=== PATIENT | male | born 1980 | race Two or more races ===

== ENCOUNTER 2023-12-25 13:26 | Outpatient (AMB) | payer MEDICAID, SELFPAY ==
[2023-12-25 13:36] VITALS: BP 122/82; PULSE 85; RESP 18; TEMP 36.4; O2SAT 96; BMI 42.7
--- NOTE | 2023-12-25 13:36 | PD.ORTHCLVIS ---
Vital signs 12/25/23 13:36 Height 1.75 m Height Method Stated Weight 130.748 kg Weight Measurement Method Standing Scale BMI 42.7 BP 122/82 Blood Pressure Source Automatic Cuff Blood Pressure Location Right Upper Arm Position Sitting Respiration 18 Pulse 85 Pulse Source Monitor Temp 97.5 F Temp Source Temporal Artery Scan Pulse Oximetry (%) 96 Oxygen Delivery Method Room Air Med/Allergies Allergies & Medications Allergies No Known Drug Allergies Allergy (Verified 12/25/23 13:37) Medication Reconciliation meloxicam 7.5 mg tablet 7.5 mg PO QDAY 10/23/23 [History Confirmed 12/25/23] meloxicam 7.5 mg tablet 7.5 mg PO QDAY #45 tabs 12/25/23 [Rx] Subjective Visit Visit for: follow up visit Immunization / Flu Flu Vaccine in the Last 12 Months: No Flu Vaccine Exclusion Criteria: No Exclusion Criteria History of Present Illness Chief complaint: F/U KNEE INJECTION Date of injury / onset of symptoms: 4 YEARS patient is a pleasant 43-year-old male who presents today for dilation of his left knee. He has been having left knee pain for over 4 years. He has not had any injections. He tried ibuprofen and meloxicam. The pain is affecting his quality life. He reports he has difficulty with stability and turning Personal History Occupation: GUEST RELATIONS EXECUTIVE Hobbies: WALKING/YARD WORK Red flag PMH: none Pain Pain level (0-10): 4 Pain duration: WITH MOVEMENT Pain location: anterior Pain quality: dull Pain timing: increases with activity Associated signs & symptoms: none Ambulatory data Ambulatory device: none Treatments Improvement with previous injections: No Improvement with PT: No Improvement with NSAIDS: n/a Review of Systems Review of Systems: All systems negative unless otherwise noted in HPI. Exam Exam Patient is in no acute distress and is cooperative with the examination today. Patient has a normal mood and affect. Breathing is nonlabored. In no respiratory distress. Bilateral extremities were evaluated and demonstrates sensation intact to light touch. Palpable pedal pulses are present. No significant edema is present. Left knee demonstrates range of motion from 0 to 110 degrees. Positive Orozco's and medial joint line tenderness. Knee feels stable to varus valgus stress with AP translation. Tender palpation medially An MRI was reviewed by me today as well as an x-ray from [facility]. MRI demonstrates a body tear of the medial meniscus. There is extrusion and severe cartilage loss medially Assessment and Plan Problem List (1) Tear of meniscus of left knee: Qualifiers: Tear current or old: current Status: Acute Plan Patient is a 43-year-old male with a tear of the left knee meniscus And arthritis of the medial compartment. We discussed nonoperative treatment. He did well with the last cortisone injection. We have given him a prescription for the meloxicam. We discussed that we can give him another cortisone injection in a month if he wants. He does not really have any mechanical symptoms right now and he did receive good relief with the last injection. Cortisone injections today. I think is reasonable to start with this. Recommend knee cortisone injection as patient would like to proceed with conservative treatment at this time. The risks and benefits of the procedure were reviewed with the patient and patient gave verbal consent to continue with the procedure. Procedure: performed by Dr. Cisneros Using sterile technique the left knee was thoroughly prepped with alcohol, and approximately 1 cc of Kenalog 40 mg/mL and 4 cc of 1% lidocaine was injected without resistance into the medial tibial femoral joint space. The patient tolerated the procedure. Office Procedures GNS Level of Care Nursing/Assessment Patient Status: Established Patient Nursing Assessment/Reassesment: Medication Reconciliation, Update PMH in EMR and Vital Signs Coordination of Care: Complex Care and Chronic Disease 1-5, Education Complex Pt/Fam, Consent,records obtained, informed consent, Results/Orders obtained and Staff clarify orders Established Patient Charge Established Patient Point Assignment: 95 Established Patient Point Charge: EP Level 3 (80-115) Past Medical History Past Medical History Have you ever been diagnosed with any of the following: Respiratory Problems Smoking: No Smoking Cessation Counseling: No Smoking Exposure: No Tobacco Use: No
== END 2023-12-25 14:02 | disposition home or self-care (01) ==
PROVIDERS: Supervising Provider Orthopaedic Surgery Adult Reconstructive Orthopaedic Surgery; Visit Provider Orthopaedic Surgery Adult Reconstructive Orthopaedic Surgery
DX: S83.242D Other tear of medial meniscus, current injury, left knee, subsequent encounter (principal); X58.XXXD Exposure to other specified factors, subsequent encounter
CPT/HCPCS: 20610; 99213; G0463

== ENCOUNTER 2024-04-22 10:06 | Outpatient (AMB) | payer MEDICAID, SELFPAY ==
[2024-04-22 10:35] VITALS: BP 116/89; PULSE 83; RESP 19; TEMP 36.7; O2SAT 96; BMI 42.2
--- NOTE | 2024-04-22 10:35 | PD.ORTHCLVIS ---
Vital signs 04/22/24 10:35 Height 1.75 m Height Method Stated Weight 129.756 kg Weight Measurement Method Standing Scale BMI 42.2 BP 116/89 H Blood Pressure Source Automatic Cuff Blood Pressure Location Left Upper Arm Position Sitting Respiration 19 Pulse 83 Pulse Source Monitor Temp 98.1 F Temp Source Temporal Artery Scan Pulse Oximetry (%) 96 Oxygen Delivery Method Room Air Med/Allergies Allergies & Medications Allergies No Known Drug Allergies Allergy (Verified 04/22/24 10:36) Medication Reconciliation meloxicam 7.5 mg tablet 7.5 mg PO QDAY 10/23/23 [History Confirmed 04/22/24] meloxicam 7.5 mg tablet 7.5 mg PO QDAY #45 tabs 12/25/23 [Rx Confirmed 04/22/24] Exam Exam Patient is in no acute distress and is cooperative with the examination today. Patient has a normal mood and affect. Breathing is nonlabored. In no respiratory distress. Bilateral extremities were evaluated and demonstrates sensation intact to light touch. Palpable pedal pulses are present. No significant edema is present. Left knee demonstrates range of motion from 0 to 110 degrees. Positive Orozco's and medial joint line tenderness. Knee feels stable to varus valgus stress with AP translation. Tender palpation medially An MRI was reviewed by me today as well as an x-ray from [facility]. MRI demonstrates a body tear of the medial meniscus. There is extrusion and severe cartilage loss medially Assessment and Plan Problem List (1) Tear of meniscus of left knee: Qualifiers: Tear current or old: current Status: Acute Plan Patient is a 43-year-old male with a tear of the left knee meniscus And arthritis of the medial compartment. We discussed nonoperative treatment. He is not responding well to nonoperative treatment. We will get a weightbearing x-ray. We will likely discuss arthroscopic surgery at the next visit versus physical therapy. Recommend knee cortisone injection as patient would like to proceed with conservative treatment at this time. The risks and benefits of the procedure were reviewed with the patient and patient gave verbal consent to continue with the procedure. Procedure: performed by Dr. Cisneros Using sterile technique the left knee was thoroughly prepped with alcohol, and approximately 1 cc of Kenalog 40 mg/mL and 4 cc of 1% lidocaine was injected without resistance into the medial tibial femoral joint space. The patient tolerated the procedure. Office Procedures GNS Level of Care Nursing/Assessment Patient Status: Established Patient Nursing Assessment/Reassesment: Medication Reconciliation, Update PMH in EMR and Vital Signs Coordination of Care: Complex Care and Chronic Disease 1-5, Education Complex Pt/Fam, 1 Ins Authorization and Staff clarify orders Established Patient Charge Established Patient Point Assignment: 100 Established Patient Point Charge: EP Level 3 (80-115) Surgical Proc/IM SQ injection Major Surgical Procedure: Yes (knee injection) Medication Given Medication Given Medication Given: Yes Documented Dose Given: 4 Route: Infiitration Medication Given Medication Given Medication Given: Yes Documented Dose Given: 4 Route: Infiitration Medication Given Medication Given Medication Given: Yes Documented Dose Given: 1 Route: Infiitration Medication Given Medication Given Medication Given: Yes Documented Dose Given: 1 Route: Infiitration Office Meds Xylocaine 10 mg/mL (1 %) injection solution Performing Provider: Manas Cisneros MD Performing Location: [facility] Administered by: Manas Cisneros MD on 04/22/24 11:22 Dose Route Admin Location Dispensed Lot Number Expiration Date [facility] Backhoe Operator 20 mL Infiltration 20 mL [id number] 11/23/25 25344-155-46 FRESENIUS KABI Xylocaine 10 mg/mL (1 %) injection solution Performing Provider: Manas Cisneros MD Performing Location: [facility] Administered by: Manas Cisneros MD on 04/22/24 11:22 Dose Route Admin Location Dispensed Lot Number Expiration Date [facility] Backhoe Operator 20 mL Infiltration 20 mL [id number] 11/23/26 08594-476-04 FRESENIUS KABI triamcinolone acetonide 40 mg/mL suspension for injection Performing Provider: Manas Cisneros MD Performing Location: [facility] Administered by: Manas Cisneros MD on 04/22/24 11:22 Dose Route Admin Location Dispensed Lot Number Expiration Date [facility] Backhoe Operator 40 mg Infiltration 1 mL [id number] 09/23/25 5499-6179-85 TEVA PARENTERAL triamcinolone acetonide 40 mg/mL suspension for injection Performing Provider: Manas Cisneros MD Performing Location: [facility] Administered by: Manas Cisneros MD on 04/22/24 11:22 Dose Route Admin Location Dispensed Lot Number Expiration Date [facility] Backhoe Operator 40 mg Infiltration 1 mL [id number] 09/23/25 [id number] PHAN PARENTERAL MA Intake Visit Data Collection New Patient or Established: Established Patient (seen at [facility] within 3 years) Reason for Visit:: LT KNEE PAIN Seen by Clinical Staff ONLY (RN/MA): No Office Employee Required: No PCP or OBGYN visit in last 3 months: Yes Do You Feel Safe at Home: Yes Questionairres Past Medical History Past Medical History Have you ever been diagnosed with any of the following: Respiratory Problems Smoking: No Smoking Cessation Counseling: No Smoking Exposure: No Tobacco Use: No Subjective Visit Visit for: follow up visit and knee Immunization / Flu Flu Vaccine in the Last 12 Months: No Flu Vaccine Exclusion Criteria: Refused by Patient History of Present Illness Chief complaint: LT KNEE PAIN Date of injury / onset of symptoms: 5 YEARS Sergio is a 43-year-old male with persistent left knee pain. This been ongoing for 4 years. He has tried multiple injections with me and they helped sometimes. He is also tried anti-inflammatories. He has not had formal physical therapy. At this point in time, he reports the pain is bothering him quite a bit. He would like to try 1 more injection. We will also likely start him with formal physical therapy. He Did not get weightbearing x-rays that we ordered last time. We will repeat them today Personal History BMI Counceling provided: Yes Pain Pain level (0-10): 7 Pain duration: CONSTANT Pain location: inside (medial), outside (lateral), anterior and posterior Pain quality: sharp Pain timing: increases with activity Associated signs & symptoms: weakness and stiffness Treatments Number of previous injections: 2 Improvement with previous injections: No Review of Systems Review of Systems: All systems negative unless otherwise noted in HPI.
== END 2024-04-22 11:22 | disposition home or self-care (01) ==
LOC: HODSRG 10:06
PROVIDERS: Supervising Provider Orthopaedic Surgery Adult Reconstructive Orthopaedic Surgery; Visit Provider Orthopaedic Surgery Adult Reconstructive Orthopaedic Surgery
DX: S83.207D Unspecified tear of unspecified meniscus, current injury, left knee, subsequent encounter (principal); X58.XXXD Exposure to other specified factors, subsequent encounter; M17.12 Unilateral primary osteoarthritis, left knee
CPT/HCPCS: 20610; 99213; J3301; J3490; G0463

== ENCOUNTER → 2024-04-22 | Outpatient (CLI) | payer MEDICAID, SELFPAY ==
--- NOTE | 2024-04-22 11:57 | XR_ITS ---
Examination: Left knee 4 views TECHNIQUE: AP oblique lateral axial standing left knee 4 views Exam date and time: April 22, 2024 1216 hours INDICATIONS: Left knee pain beginning 2 months ago. FINDINGS: Mild osteopenia Advanced narrowing [id number] medial joint space Moderate osteoarthritis patellofemoral joint Surgical clips below the patella on the lateral view IMPRESSION: Advanced narrowing [id number] medial joint space
== END | disposition home or self-care (01) ==
LOC: CDIM 11:53
PROVIDERS: Referring Provider Orthopaedic Surgery Adult Reconstructive Orthopaedic Surgery; Visit Provider Orthopaedic Surgery Adult Reconstructive Orthopaedic Surgery
DX: M25.862 Other specified joint disorders, left knee (principal)
CPT/HCPCS: 73564

== ENCOUNTER 2024-05-06 11:26 | Outpatient (AMB) | payer MEDICAID, SELFPAY ==
--- NOTE | 2024-05-06 11:08 | PD.ORTHTELE ---
Med/Allergies Allergies & Medications Allergies No Known Drug Allergies Allergy (Verified 05/06/24 11:08) Medication Reconciliation meloxicam 7.5 mg tablet 7.5 mg PO QDAY 10/23/23 [History Confirmed 05/06/24] meloxicam 7.5 mg tablet 7.5 mg PO QDAY #45 tabs 12/25/23 [Rx Confirmed 05/06/24] Subjective Visit Visit for: follow up visit, knee and x-rays Immunization / Flu Flu Vaccine in the Last 12 Months: Yes Flu Vaccine Exclusion Criteria: Already Received History of Present Illness Chief complaint: TELEMED F/U XRAYS Sergio is a 43-year-old male with severe knee arthritis. We went over his x-rays and this demonstrates severe arthritis with total knees. She has complete obliteration of the medial joint space. We also discussed the weight loss given his BMI being a little high Pain Pain level (0-10): 8 Pain duration: COMES AND GOES Pain location: inside (medial), outside (lateral), anterior and posterior Pain quality: sharp, dull and aching Pain timing: increases with activity Associated signs & symptoms: stiffness Ambulatory data Ambulatory device: none Treatments Improvement with previous injections: No Improvement with PT: No Improvement with NSAIDS: n/a Review of Systems Review of Systems: All systems negative unless otherwise noted in HPI. Assessment and Plan Problem List (1) Tear of meniscus of left knee: Qualifiers: Tear current or old: current Status: Acute Plan Patient is a 43-year-old male with a tear of the left knee meniscus And arthritis of the medial compartment. We discussed nonoperative treatment. We looked at his new right knee x-rays and he has bmom-[id number] arthritis medially. He is not a candidate for arthroscopic surgery. We discussed weight loss in great detail as he would need to lose some weight before undergoing surgery. We had a very honest discussion about the fact that he is very young and that we would like to put off surgery if possible. We recommend weight loss and continue conservative treatment for now Office Procedures GNS Level of Care Nursing/Assessment Patient Status: Established Patient Nursing Assessment/Reassesment: Medication Reconciliation, Update PMH in EMR and Vital Signs Coordination of Care: Complex Care and Chronic Disease 1-5, Education Complex Pt/Fam, Consent,records obtained, informed consent, Results/Orders obtained and Staff clarify orders Established Patient Charge Established Patient Point Assignment: 95 Telehealth Telemed Phone/Video with patient at home & Dr,PA,[employer]: Yes
== END 2024-05-06 11:42 | disposition home or self-care (01) ==
LOC: HODSRG 11:26
PROVIDERS: Supervising Provider Orthopaedic Surgery Adult Reconstructive Orthopaedic Surgery; Visit Provider Orthopaedic Surgery Adult Reconstructive Orthopaedic Surgery
DX: S83.207D Unspecified tear of unspecified meniscus, current injury, left knee, subsequent encounter (principal); X58.XXXD Exposure to other specified factors, subsequent encounter; M17.11 Unilateral primary osteoarthritis, right knee
CPT/HCPCS: 99212; G0463

== ENCOUNTER 2024-07-15 14:52 | Outpatient (AMB) | payer MEDICAID, SELFPAY ==
--- NOTE | 2024-07-15 15:13 | ORTHONT_ITS ---
Vital signs 07/15/24 15:17 Height 1.75 m Height Method Stated Weight 124.993 kg Weight Measurement Method Standing Scale BMI 40.8 BP 129/85 H Blood Pressure Source Automatic Cuff Blood Pressure Location Left Upper Arm Position Sitting Respiration 18 Pulse 71 Pulse Source Monitor Temp 98.7 F Temp Source Temporal Artery Scan Pulse Oximetry (%) 98 Oxygen Delivery Method Room Air Med/Allergies Allergies & Medications Allergies No Known Drug Allergies Allergy (Verified 05/06/24 11:08) Exam Exam Patient is in no acute distress and is cooperative with the examination today. Patient has a normal mood and affect. Breathing is nonlabored. In no respiratory distress. Bilateral extremities were evaluated and demonstrates sensation intact to light touch. Palpable pedal pulses are present. No significant edema is present. Left knee demonstrates range of motion from 0 to 110 degrees. Positive Orozco's and medial joint line tenderness. Knee feels stable to varus valgus stress with AP translation. Tender palpation medially An MRI was reviewed by me today as well as an x-ray from [facility]. MRI demonstrates a body tear of the medial meniscus. There is extrusion and severe cartilage loss medially X-rays demonstrate [id number] arthritis medially with varus deformity Assessment and Plan Problem List (1) Tear of meniscus of left knee: Qualifiers: Tear current or old: current Status: Acute Plan Patient is a 43-year-old male with a tear of the left knee meniscus And arthritis of the medial compartment. We discussed nonoperative treatment. We looked at his new right knee x-rays and he has hien-[id number] arthritis medially. He is not a candidate for arthroscopic surgery. We discussed weight loss in great detail as he would need to lose some weight before undergoing surgery. We had a very honest discussion about the fact that he is very young and that we would like to put off surgery if possible. We recommend weight loss and continue conservative treatment for now Recommend knee cortisone injection as patient would like to proceed with conservative treatment at this time. The risks and benefits of the procedure were reviewed with the patient and patient gave verbal consent to continue with the procedure. Procedure: performed by Dr. Cisneros Using sterile technique the left knee was thoroughly prepped with alcohol, and approximately 1 cc of Kenalog 40 mg/mL and 4 cc of 1% lidocaine was injected without resistance into the medial tibial femoral joint space. The patient tolerated the procedure. Office Procedures GNS Level of Care Nursing/Assessment Patient Status: Established Patient Nursing Assessment/Reassesment: BP Monitoring, Medication Reconciliation, Update PMH in EMR and Vital Signs Coordination of Care: Complex Care and Chronic Disease 1-5, Consent,records obtained, informed consent, Lab and Imaging orders and Results/Orders obtained Established Patient Charge Established Patient Point Assignment: 95 Established Patient Point Charge: EP Level 3 (80-115) Surgical Proc/IM SQ injection Major Surgical Procedure: Yes (KNEE INJECTION) Medication Given Medication Given Medication Given: Yes Documented Dose Given: 4 Route: Infiitration Medication Given Medication Given Medication Given: Yes Documented Dose Given: 1 Route: Infiitration Office Meds Xylocaine 10 mg/mL (1 %) injection solution Performing Provider: Manas Cisneros MD Performing Location: [facility] Administered by: Manas Cisneros MD on 07/15/24 16:06 Dose Route Admin Location Dispensed Lot Number Expiration Date [facility] Quality Control Assistant 20 mL Infiltration 20 mL [id number] FRESEN S KABI triamcinolone acetonide 40 mg/mL suspension for injection Performing Provider: Manas Cisneros MD Performing Location: [facility] Administered by: Manas Cisneros MD on 07/15/24 16:06 Dose Route Admin Location Dispensed Lot Number Expiration Date [facility] Quality Control Assistant 40 mg intra-articular KNEE 1 mL [id number] 11/25/25 [id number] [facility] [place] Intake Visit Data Collection New Patient or Established: Established Patient (seen at [facility] within 3 years) Reason for Visit:: LEFT KNEE INJ Seen by Clinical Staff ONLY (RN/MA): No Verbal consent obtained for Telemed visit?: No PCP or OBGYN visit in last 3 months: No Hx Now: No Do You Feel Safe at Home: Yes Authorities Contacted: N/A Questionairres Past Medical History Past Medical History Have you ever been diagnosed with any of the following: Respiratory Problems Smoking: No Smoking Cessation Counseling: No Smoking Exposure: No Tobacco Use: No Subjective Visit Visit for: follow up visit Immunization / Flu Flu Vaccine in the Last 12 Months: No Flu Vaccine Exclusion Criteria: Refused by Patient History of Present Illness Chief complaint: LEFT KNEE INJECTION Date of injury / onset of symptoms: 5 YEARS Sergio is a 43-year-old male with persistent left knee pain. This been ongoing for 4 years. He has tried multiple injections with me and they helped sometimes. He is also tried anti-inflammatories. He has not had formal physical therapy. At this point in time, he reports the pain is bothering him q uite a bit. He would like to try another injection. We will also likely start him with formal physical therapy. Personal History BMI Counceling provided: Yes Pain Pain level (0-10): 7 Pain duration: ALL DAY Pain location: inside (medial), outside (lateral), anterior and posterior Pain quality: sharp Pain timing: increases with activity Associated signs & symptoms: none Ambulatory data Ambulatory device: none Treatments Number of previous injections: 2 Improvement with previous injections: No Review of Systems Review of Systems: All systems negative unless otherwise noted in HPI.
[2024-07-15 15:17] VITALS: BP 129/85; PULSE 71; RESP 18; TEMP 37.1; O2SAT 98; BMI 40.8
== END 2024-07-15 15:50 | disposition home or self-care (01) ==
LOC: HODSRG 14:52
PROVIDERS: Supervising Provider Orthopaedic Surgery Adult Reconstructive Orthopaedic Surgery; Visit Provider Orthopaedic Surgery Adult Reconstructive Orthopaedic Surgery
DX: S83.242A Other tear of medial meniscus, current injury, left knee, initial encounter (principal); X58.XXXA Exposure to other specified factors, initial encounter; M17.12 Unilateral primary osteoarthritis, left knee
CPT/HCPCS: 20610; 99213; J3301; J3490; G0463

== ENCOUNTER 2024-11-10 14:30 | Outpatient (AMB) | payer MEDICAID, SELFPAY ==
[2024-11-10 14:50] VITALS: BP 128/80; PULSE 78; RESP 19; TEMP 36.6; O2SAT 99; BMI 40.1
--- NOTE | 2024-11-10 14:50 | PD.ORTHCLVIS ---
Vital signs 11/10/24 14:50 Height 1.75 m Height Method Stated Weight 123.009 kg Weight Measurement Method Standing Scale BMI 40.1 BP 128/80 Blood Pressure Source Automatic Cuff Blood Pressure Location Left Upper Arm Position Sitting Respiration 19 Pulse 78 Pulse Source Monitor Temp 97.9 F Temp Source Temporal Artery Scan Pulse Oximetry (%) 99 Oxygen Delivery Method Room Air Med/Allergies Allergies & Medications Allergies No Known Drug Allergies Allergy (Verified 11/10/24 14:51) Medication Reconciliation meloxicam 7.5 mg tablet 7.5 mg PO QDAY 10/23/23 [History Confirmed 11/10/24] meloxicam 7.5 mg tablet 7.5 mg PO QDAY #45 tabs 12/25/23 [Rx Confirmed 11/10/24] diclofenac sodium 1 % topical gel (Arthritis Pain (diclofenac)) 4 g topical QID #100 grams 07/15/24 [Rx Confirmed 11/10/24] meloxicam 7.5 mg tablet 7.5 mg PO QDAY #45 tabs 07/15/24 [Rx Confirmed 11/10/24] Exam Exam Patient is in no acute distress and is cooperative with the examination today. Patient has a normal mood and affect. Breathing is nonlabored. In no respiratory distress. Bilateral extremities were evaluated and demonstrates sensation intact to light touch. Palpable pedal pulses are present. No significant edema is present. Left knee demonstrates range of motion from 0 to 110 degrees. Positive Orozco's and medial joint line tenderness. Knee feels stable to varus valgus stress with AP translation. Tender palpation medially An MRI was reviewed by me today as well as an x-ray from [facility]. MRI demonstrates a body tear of the medial meniscus. There is extrusion and severe cartilage loss medially X-rays demonstrate [id number]-[id number] arthritis medially with varus deformity Assessment and Plan Problem List (1) Tear of meniscus of left knee: Qualifiers: Tear current or old: current Status: Acute Plan Patient is a 43-year-old male with a tear of the left knee meniscus And arthritis of the medial compartment. We discussed nonoperative treatment. We looked at his new knee x-rays and he has bqfs-xb-[id number] arthritis medially. He is not a candidate for arthroscopic surgery. We discussed weight loss in great detail as he would need to lose some weight before undergoing surgery. He has been attempt to lose weight. He would like to get a total knee replacement as the pain is affecting his quality life and happiness. We discussed that he is on the younger side for total knee replacement and that there is a possibility that he will need revision surgery in his lifetime given how young he is right now. He understands the risks and would like to proceed with surgery as the pain is miserable for him. We recommend continued weight loss if possible. He would like to get a knee injection now and understands that he will have to wait 3 months at least until he can get surgery The nature and purpose of the total knee replacement, alternative method(s) of treatment, the material risks involved, and the possibility of complications were fully explained to the patient. The patient does NOT have any of the following contraindications to TKA: - Active infection of the knee joint, OR - Active systemic bacteremia, OR - Active skin infection or open wound at surgical site, OR - Neuropathic arthritis, OR - Severe, rapidly progressive neurological disease, OR - Severe medical condition that makes risks of surgery outweigh the potential benefit The patient was told the most common risks and complications associated with a total knee replacement include, but are not limited to: blood clots in the leg, fatal pulmonary embolism, dislocation of the prosthesis, intraoperative and postoperative fractures of the femur or tibia, infection, failure of the prosthesis or grafting materials, complications from anesthesia, reactions to blood transfusions, postoperative leg length inequality, instability of the knee replacement, nerve damage or injury, vascular injury, delayed wound healing, infection, other injury or even . In addition, there are risks associated with anesthesia given during this operation. Also, the patient was told that after undergoing a total knee replacement there may still be persistent pain or disability. The patient was informed that the success of this operation in part depends upon the mechanical devices which are going to be implanted and that these devices can fail or malfunction, and may need to be repaired or replaced and there are no guarantees as to the longevity of this device or its parts and that it or its parts could fail prematurely. The patient was also notified that during the course of surgery, there may be a need to use bone graft from donors, and that any bone graft used will be carefully screened for communicable diseases, including AIDS, hepatitis, Franko-Creutzfeldt, or other diseases, but despite the screening procedures, there is a small chance that they could contract one of these diseases. Finally, the patient was asked to follow completely and fully with all advice and recommended treatments, and that recovery and ultimate outcome are affected by their compliance with recommended treatment. We discussed the risks, benefits and treatment alternatives, and the patient is interested in proceeding with surgery. We will try to set this up as expeditiously as possible. Recommend knee cortisone injection as patient would like to proceed with conservative treatment at this time. The risks and benefits of the procedure were reviewed with the patient and patient gave verbal consent to continue with the procedure. Procedure: performed by Dr. Cisneros Using sterile technique the left knee was thoroughly prepped with alcohol, and approximately 1 cc of Kenalog 40 mg/mL and 4 cc of 1% lidocaine was injected without resistance into the medial tibial femoral joint space. The patient tolerated the procedure. Office Procedures GNS Level of Care Nursing/Assessment Patient Status: Established Patient Nursing Assessment/Reassesment: Medication Reconciliation, Update PMH in EMR and Vital Signs Coordination of Care: Complex Care and Chronic Disease 1-5, Education Complex Pt/Fam, Consent,records obtained, informed consent, Results/Orders obtained and Staff clarify orders Established Patient Charge Established Patient Point Assignment: 95 Established Patient Point Charge: EP Level 3 (80-115) Surgical Proc/IM SQ injection Major Surgical Procedure: Yes (KNEE INJECTION) Medication Given Medication Given Medication Given: Yes Documented Dose Given: 4 Route: Infiitration Medication Given Medication Given Medication Given: Yes Documented Dose Given: 1 Route: Infiitration Office Meds Xylocaine 10 mg/mL (1 %) injection solution Performing Provider: Manas Cisneros MD Performing Location: [facility] Administered by: Manas Cisneros MD on 11/10/24 15:01 Dose Route Admin Location Dispensed Lot Number Expiration Date [facility] Group Director 20 mL Infiltration 20 mL [id number] 01/25/28 63825-491-32 [facility] triamcinolone acetonide 40 mg/mL suspension for injection Performing Provider: Manas Cisneros MD Performing Location: [facility] Administered by: Manas Cisneros MD on 11/10/24 15:01 Dose Route Admin Location Dispensed Lot Number Expiration Date [facility] Group Director 40 mg intra-articular KNEE 1 mL [id number] 05/26/26 04914-961-73 CESARIO DEAN [place] Intake Visit Data Collection New Patient or Established: Established Patient (seen at [facility] within 3 years) Reason for Visit:: LEFT KNEE INJ Seen by Clinical Staff ONLY (RN/MA): No Verbal consent obtained for Telemed visit?: No PCP or OBGYN visit in last 3 months: No Hx Now: No Do You Feel Safe at Home: Yes Authorities Contacted: N/A Questionairres Past Medical History Past Medical History Have you ever been diagnosed with any of the following: Respiratory Problems Smoking: No Smoking Cessation Counseling: No Smoking Exposure: No Tobacco Use: No Subjective Visit Visit for: follow up visit Immunization / Flu Flu Vaccine in the Last 12 Months: No Flu Vaccine Exclusion Criteria: Refused by Patient History of Present Illness Chief complaint: LEFT KNEE INJECTION Date of injury / onset of symptoms: 5 YEARS Sergio is a 44-year-old male with persistent left knee pain. He has significant smfs-qj-kscs arthritis in the left knee. this has been ongoing for 4 years. He has tried 5 injections, several months of home exercises, and meloxicam. He reports the pain is significant and is affecting his quality life and happiness. The pain is diffuse and not just in the medial compartment. He reports that he is seeking surgery as conservative treatment is not lasting very long. He reports injections are only lasting about 1 month at the most. He has made an attempt to lose weight and has lost approximately 5 pounds since we last saw him Personal History BMI Counceling provided: Yes Pain Pain level (0-10): 7 Pain duration: ALL DAY Pain location: inside (medial), outside (lateral), anterior and posterior Pain quality: sharp Pain timing: increases with activity Associated signs & symptoms: none Ambulatory data Ambulatory device: none Treatments Number of previous injections: 2 Improvement with previous injections: No Review of Systems Review of Systems: All systems negative unless otherwise noted in HPI.
== END 2024-11-10 15:02 | disposition home or self-care (01) ==
LOC: HODSRG 14:30
PROVIDERS: Supervising Provider Orthopaedic Surgery Adult Reconstructive Orthopaedic Surgery; Visit Provider Orthopaedic Surgery Adult Reconstructive Orthopaedic Surgery
DX: S83.207D Unspecified tear of unspecified meniscus, current injury, left knee, subsequent encounter (principal); X58.XXXD Exposure to other specified factors, subsequent encounter; M17.12 Unilateral primary osteoarthritis, left knee
CPT/HCPCS: 20610; 99213; J3301; J3490; G0463

== ENCOUNTER 2025-02-17 10:47 | Outpatient (AMB) | payer MEDICAID, SELFPAY ==
[2025-02-17 11:05] VITALS: BP 143/88; PULSE 73; RESP 18; TEMP 36.3; O2SAT 97; BMI 39.2
--- NOTE | 2025-02-17 11:05 | PD.ORTHCLVIS ---
Vital signs 02/17/25 11:05 Height 1.75 m Height Method Measured Weight 120.202 kg Weight Measurement Method Standing Scale BMI 39.2 BP 143/88 H Blood Pressure Source Automatic Cuff Blood Pressure Location Left Upper Arm Position Sitting Respiration 18 Pulse 73 Pulse Source Monitor Temp 97.3 F Temp Source Temporal Artery Scan Pulse Oximetry (%) 97 Oxygen Delivery Method Room Air Med/Allergies Allergies & Medications Allergies No Known Drug Allergies Allergy (Verified 02/17/25 11:07) Medication Reconciliation meloxicam 7.5 mg tablet 7.5 mg PO QDAY 10/23/23 [History Confirmed 02/17/25] meloxicam 7.5 mg tablet 7.5 mg PO QDAY #45 tabs 12/25/23 [Rx Confirmed 02/17/25] diclofenac sodium 1 % topical gel (Arthritis Pain (diclofenac)) 4 g topical QID #100 grams 07/15/24 [Rx Confirmed 02/17/25] meloxicam 7.5 mg tablet 7.5 mg PO QDAY #45 tabs 07/15/24 [Rx Confirmed 02/17/25] Exam Exam Patient is in no acute distress and is cooperative with the examination today. Patient has a normal mood and affect. Breathing is nonlabored. In no respiratory distress. Bilateral extremities were evaluated and demonstrates sensation intact to light touch. Palpable pedal pulses are present. No significant edema is present. Left knee demonstrates range of motion from 0 to 110 degrees. Positive Orozco's and medial joint line tenderness. Knee feels stable to varus valgus stress with AP translation. Tender palpation medially An MRI was reviewed by me today as well as an x-ray from [facility]. MRI demonstrates a body tear of the medial meniscus. There is extrusion and severe cartilage loss medially X-rays demonstrate egff-uo-utuo arthritis medially with varus deformity Assessment and Plan Problem List (1) Tear of meniscus of left knee: Qualifiers: Tear current or old: current Status: Acute Plan Patient is a 43-year-old male with a tear of the left knee meniscus And arthritis of the medial compartment. We discussed nonoperative treatment. We looked at his new knee x-rays and he has kqlb-jr-tumv arthritis medially. He is not a candidate for arthroscopic surgery. We discussed weight loss in great detail as he would need to lose some weight before undergoing surgery. He has been attempt to lose weight. He would like to get a total knee replacement as the pain is affecting his quality life and happiness. We discussed that he is on the younger side for total knee replacement and that there is a possibility that he will need revision surgery in his lifetime given how young he is right now. He understands the risks and would like to proceed with surgery as the pain is miserable for him. The patient has lost over 10 pounds since we originally saw her in June. The nature and purpose of the total knee replacement, alternative method(s) of treatment, the material risks involved, and the possibility of complications were fully explained to the patient. The patient does NOT have any of the following contraindications to TKA: - Active infection of the knee joint, OR - Active systemic bacteremia, OR - Active skin infection or open wound at surgical site, OR - Neuropathic arthritis, OR - Severe, rapidly progressive neurological disease, OR - Severe medical condition that makes risks of surgery outweigh the potential benefit The patient was told the most common risks and complications associated with a total knee replacement include, but are not limited to: blood clots in the leg, fatal pulmonary embolism, dislocation of the prosthesis, intraoperative and postoperative fractures of the femur or tibia, infection, failure of the prosthesis or grafting materials, complications from anesthesia, reactions to blood transfusions, postoperative leg length inequality, instability of the knee replacement, nerve damage or injury, vascular injury, delayed wound healing, infection, other injury or even . In addition, there are risks associated with anesthesia given during this operation. Also, the patient was told that after undergoing a total knee replacement there may still be persistent pain or disability. The patient was informed that the success of this operation in part depends upon the mechanical devices which are going to be implanted and that these devices can fail or malfunction, and may need to be repaired or replaced and there are no guarantees as to the longevity of this device or its parts and that it or its parts could fail prematurely. The patient was also notified that during the course of surgery, there may be a need to use bone graft from donors, and that any bone graft used will be carefully screened for communicable diseases, including AIDS, hepatitis, Franko-Creutzfeldt, or other diseases, but despite the screening procedures, there is a small chance that they could contract one of these diseases. Finally, the patient was asked to follow completely and fully with all advice and recommended treatments, and that recovery and ultimate outcome are affected by their compliance with recommended treatment. We discussed the risks, benefits and treatment alternatives, and the patient is interested in proceeding with surgery. We will try to set this up as expeditiously as possible. Office Procedures GNS Level of Care Nursing/Assessment Patient Status: Established Patient Nursing Assessment/Reassesment: Medication Reconciliation, Update PMH in EMR and Vital Signs Coordination of Care: Complex Care and Chronic Disease 1-5, Education Complex Pt/Fam, Consent,records obtained, informed consent, Results/Orders obtained and Staff clarify orders Established Patient Charge Established Patient Point Assignment: 95 Established Patient Point Charge: EP Level 3 (80-115) MA Intake Visit Data Collection New Patient or Established: Established Patient (seen at [facility] within 3 years) Reason for Visit:: 3MTH R KNEE Seen by Clinical Staff ONLY (RN/MA): No Verbal consent obtained for Telemed visit?: No PCP or OBGYN visit in last 3 months: No Hx Now: No Do You Feel Safe at Home: Yes Authorities Contacted: N/A Questionairres Past Medical History Past Medical History Have you ever been diagnosed with any of the following: Respiratory Problems Smoking: No Smoking Cessation Counseling: No Smoking Exposure: No Tobacco Use: No Subjective Visit Visit for: follow up visit Immunization / Flu Flu Vaccine in the Last 12 Months: No Flu Vaccine Exclusion Criteria: Refused by Patient History of Present Illness Chief complaint: LEFT KNEE INJECTION Date of injury / onset of symptoms: 5 YEARS Sergio is a 44-year-old male with persistent left knee pain. He has significant irkk-hr-bkwm arthritis in the left knee. this has been ongoing for 4 years. He has tried 5 injections, several months of home exercises, and meloxicam. He reports the pain is significant and is affecting his quality life and happiness. The pain is diffuse and not just in the medial compartment. He reports that he is seeking surgery as conservative treatment is not lasting very long. He reports injections are only lasting about 1 month at the most. He has made an attempt to lose weight and has lost approximately 5 pounds since we last saw him. He has now lost over 10 pounds total and he has failed conservative treatment. He reports that the pain is diffuse Personal History BMI Counceling provided: Yes Pain Pain level (0-10): 7 Pain duration: ALL DAY Pain location: inside (medial), outside (lateral), anterior and posterior Pain quality: sharp Pain timing: increases with activity Associated signs & symptoms: none Ambulatory data Ambulatory device: none Treatments Number of previous injections: 2 Improvement with previous injections: No Review of Systems Review of Systems: All systems negative unless otherwise noted in HPI.
== END 2025-02-17 11:20 | disposition home or self-care (01) ==
LOC: HODSRG 10:47
PROVIDERS: Supervising Provider Orthopaedic Surgery Adult Reconstructive Orthopaedic Surgery; Visit Provider Orthopaedic Surgery Adult Reconstructive Orthopaedic Surgery
DX: M25.562 Pain in left knee (principal); M17.12 Unilateral primary osteoarthritis, left knee; S83.242D Other tear of medial meniscus, current injury, left knee, subsequent encounter; X58.XXXD Exposure to other specified factors, subsequent encounter
CPT/HCPCS: 99213; G0463

== ENCOUNTER 2025-03-08 14:25 | Outpatient (AMB) | payer MEDICAID, SELFPAY ==
--- NOTE | 2025-03-08 14:42 | ORTHONT_ITS ---
Vital signs 03/08/25 14:43 03/08/25 14:44 Height 1.75 m 1.75 m Height Method Measured Measured Weight 122.101 kg 122.101 kg Weight Measurement Method Standing Scale Standing Scale BMI 39.9 39.9 BP 125/82 125/82 Blood Pressure Source Automatic Cuff Automatic Cuff Blood Pressure Location Left Upper Arm Left Upper Arm Position Sitting Sitting Respiration 18 18 Pulse 75 75 Pulse Source Monitor Monitor Temp 97.5 F 97.5 F Temp Source Temporal Artery Scan Temporal Artery Scan Pulse Oximetry (%) 97 97 Oxygen Delivery Method Room Air Room Air Med/Allergies Allergies & Medications Allergies No Known Drug Allergies Allergy (Verified 03/08/25 14:45) Medication Reconciliation meloxicam 7.5 mg tablet 7.5 mg PO QDAY 10/23/23 [History Confirmed 03/08/25] meloxicam 7.5 mg tablet 7.5 mg PO QDAY #45 tabs 12/25/23 [Rx Confirmed 03/08/25] diclofenac sodium 1 % topical gel (Arthritis Pain (diclofenac)) 4 g topical QID #100 grams 07/15/24 [Rx Confirmed 03/08/25] meloxicam 7.5 mg tablet 7.5 mg PO QDAY #45 tabs 07/15/24 [Rx Confirmed 03/08/25] Exam Exam Patient is in no acute distress and is cooperative with the examination today. Patient has a normal mood and affect. Breathing is nonlabored. In no respiratory distress. Bilateral extremities were evaluated and demonstrates sensation intact to light touch. Palpable pedal pulses are present. No significant edema is present. Left knee demonstrates range of motion from 0 to 110 degrees. Positive Orozco's and medial joint line tenderness. Knee feels stable to varus valgus stress with AP translation. Tender palpation medially An MRI was reviewed by me today as well as an x-ray from [facility]. MRI demonstrates a body tear of the medial meniscus. There is extrusion and severe cartilage loss medially X-rays demonstrate prfk-qn-[id number] arthritis medially with varus deformity Assessment and Plan Problem List (1) Tear of meniscus of left knee: Qualifiers: Tear current or old: current Status: Acute Plan Patient is a 44-year-old male with a tear of the left knee meniscus And arthritis of the medial compartment. We discussed nonoperative treatment. We looked at his new knee x-rays and he has bflj-dk-lxmc arthritis medially. He is not a candidate for arthroscopic surgery. We discussed weight loss in great detail as he would need to lose some weight before undergoing surgery. He has been attempt to lose weight. He would like to get a total knee replacement as the pain is affecting his quality life and happiness. We discussed that he is on the younger side for total knee replacement and that there is a possibility that he will need revision surgery in his lifetime given how young he is right now. He understands the risks and would like to proceed with surgery as the pain is miserable for him. The patient has lost over 10 pounds since we originally saw her in June. The nature and purpose of the total knee replacement, alternative method(s) of treatment, the material risks involved, and the possibility of complications were fully explained to the patient. The patient does NOT have any of the following contraindications to TKA: - Active infection of the knee joint, OR - Active systemic bacteremia, OR - Active skin infection or open wound at surgical site, OR - Neuropathic arthritis, OR - Severe, rapidly progressive neurological disease, OR - Severe medical condition that makes risks of surgery outweigh the potential benefit The patient was told the most common risks and complications associated with a total knee replacement include, but are not limited to: blood clots in the leg, fatal pulmonary embolism, dislocation of the prosthesis, intraoperative and postoperative fractures of the femur or tibia, infection, failure of the prosthesis or grafting materials, complications from anesthesia, reactions to blood transfusions, postoperative leg length inequality, instability of the knee replacement, nerve damage or injury, vascular injury, delayed wound healing, infection, other injury or even . In addition, there are risks associated with anesthesia given during this operation. Also, the patient was told that after undergoing a total knee replacement there may still be persistent pain or disability. The patient was informed that the success of this operation in part depends upon the mechanical devices which are going to be implanted and that these devices can fail or malfunction, and may need to be repaired or replaced and there are no guarantees as to the longevity of this device or its parts and that it or its parts could fail prematurely. The patient was also notified that during the course of surgery, there may be a need to use bone graft from donors, and that any bone graft used will be carefully screened for communicable diseases, including AIDS, hepatitis, Franko-Creutzfeldt, or other diseases, but despite the screening procedures, there is a small chance that they could contract one of these diseases. Finally, the patient was asked to follow completely and fully with all advice and recommended treatments, and that recovery and ultimate outcome are affected by their compliance with recommended treatment. We discussed the risks, benefits and treatment alternatives, and the patient is interested in proceeding with surgery. We will try to set this up as expeditiously as possible. Office Procedures GNS Level of Care Nursing/Assessment Patient Status: Established Patient Nursing Assessment/Reassesment: Medication Reconciliation, Update PMH in EMR and Vital Signs Coordination of Care: Complex Care and Chronic Disease 1-5, Education Complex Pt/Fam, Consent,records obtained, informed consent, Results/Orders obtained and Staff clarify orders Established Patient Charge Established Patient Point Assignment: 95 Established Patient Point Charge: Level 3 (80-115) MA Intake Visit Data Collection New Patient or Established: Established Patient (seen at [facility] within 3 years) Reason for Visit:: PRE OP Seen by Clinical Staff ONLY (RN/MA): No Verbal consent obtained for Telemed visit?: No Back Shoe Cutter Required: No PCP or OBGYN visit in last 3 months: Yes Hx Now: No Do You Feel Safe at Home: Yes Authorities Contacted: N/A Questionairres Past Medical History Past Medical History Have you ever been diagnosed with any of the following: Respiratory Problems Smoking: No Smoking Cessation Counseling: No Smoking Exposure: No Tobacco Use: No Subjective Visit Visit for: follow up visit and knee Immunization / Flu Flu Vaccine in the Last 12 Months: No Flu Vaccine Exclusion Criteria: Refused by Patient History of Present Illness Chief complaint: PRE OP Date of injury / onset of symptoms: 5 YEARS Sergio is a 44-year-old male with persistent left knee pain. He has significant lztk-lh-lkqj arthritis in the left knee. this has been ongoing for 4 years. He has tried 5 injections, several months of home exercises, and meloxicam. He reports the pain is significant and is affecting his quality life and happiness. The pain is diffuse and not just in the medial compartment. He reports that he is seeking surgery as conservative treatment is not lasting very long. He reports injections are only lasting about 1 month at the most. He has made an attempt to lose weight and has lost approximately 5 pounds since we last saw him. He has now lost over 10 pounds total and he has failed conservative treatment. He reports that the pain is diffuse Personal History BMI Counceling provided: Yes Pain Pain level (0-10): 7 Pain duration: ALL DAY Pain location: inside (medial), outside (lateral), anterior and posterior Pain quality: sharp Pain timing: increases with activity Associated signs & symptoms: none Ambulatory data Ambulatory device: none Treatments Number of previous injections: 2 Improvement with previous injections: No Review of Systems Review of Systems: All systems negative unless otherwise noted in HPI.
[2025-03-08 14:43] VITALS: BP 125/82; PULSE 75; RESP 18; TEMP 36.4; O2SAT 97; BMI 39.9
[2025-03-08 14:44] VITALS: BP 125/82; PULSE 75; RESP 18; TEMP 36.4; O2SAT 97; BMI 39.9
== END 2025-03-08 15:03 | disposition home or self-care (01) ==
PROVIDERS: Supervising Provider Orthopaedic Surgery Adult Reconstructive Orthopaedic Surgery; Visit Provider Orthopaedic Surgery Adult Reconstructive Orthopaedic Surgery
DX: M17.12 Unilateral primary osteoarthritis, left knee (principal)
CPT/HCPCS: 99213; G0463

== ENCOUNTER → 2025-03-08 | Outpatient (CLI) | payer MEDICAID, SELFPAY ==
--- NOTE | 2025-03-08 15:46 | XR_ITS ---
Examination: CT left lower extremity, without contrast. 2-D sagittal reconstructions. 2-D coronal reconstructions. 3-D reconstructions. Date and time of exam: March 08, 2025, 1619 hours INDICATIONS: Diagnosis unilateral primary left knee osteoarthritis knee pain 1 year CTDI: vol (mGy): 14.1 DLP: (mGycm): 1224 Technique: Multiple 1.25 mm axial sections of the left lower extremity without intravenous contrast have been obtained. 2-D sagittal and coronal reconstructions have been obtained. 3-D reconstructions have been obtained. Low dose protocols were performed. One or more of the following dose reduction techniques were used; automated exposure control, adjustment of the mA and/or KV according to patient size, use of iterative reconstruction technique. Findings: Mild narrowing left hip joint, 14 mm old bone density lateral to the left hip joint No acute fracture No avascular necrosis Severe narrowing ibwe-ox-qito medial joint space left knee Significant osteoarthritis lateral and patellofemoral joints No fractures IMPRESSION: Severe narrowing cttc-fm-qdwj medial joint space left knee Significant osteoarthritis lateral patellofemoral joints
== END | disposition home or self-care (01) ==
PROVIDERS: Referring Provider Orthopaedic Surgery Adult Reconstructive Orthopaedic Surgery; Visit Provider Orthopaedic Surgery Adult Reconstructive Orthopaedic Surgery
DX: M17.12 Unilateral primary osteoarthritis, left knee (principal); M25.862 Other specified joint disorders, left knee
CPT/HCPCS: 73700

== ENCOUNTER 2025-03-13 09:45 | Day surgery (SDC) | payer OTHER, SELFPAY ==
[2025-03-10 10:32] VITALS: BMI 39.6
[2025-03-10 10:58] LABS: Basophils # (Auto) 0.0 Thou/mm3 (0.0-0.2); Basophils % (Auto) 1 % (0-2.5); Eosinophils # (Auto) 0.1 Thou/mm3 (0.0-0.5); Eosinophils % (Auto) 1 % (0-10); Hematocrit 43.1 % (41.0-53.0); Hemoglobin 14.3 g/dL (13.5-16.0); Immature Granulocytes Auto 0.03 Thou/mm3 (0.00-0.00); Lymphocytes # (Auto) 2.1 Thou/mm3 (1.0-4.8); Lymphocytes % (Auto) 24 % (10-50); Mean Corpuscular HGB Conc 33.2 g/dl (31.0-37.0); Mean Corpuscular Hemoglobin 28.6 pg (25.0-35.0); Mean Corpuscular Volume 86 fL (80-100); Monocytes # (Auto) 0.6 Thou/mm3 (0.0-0.8); Monocytes % (Auto) 7 % (0-12); Neutrophils # (Auto) 5.9 Thou/mm3 (1.8-7.7); Neutrophils % (Auto) 68 % (37-80); Nucleated Red Blood Cell # 0.00 Thou/mm3 (0.00-0.00); Nucleated Red Blood Cell % 0 /100 WBC (0); Platelet Count 271 Thou/mm3 (140-440); RDW Standard Deviation 39.6 fL (35.1-43.9); Red Blood Count 5.00 Miln/mm3 (4.50-5.90); White Blood Count 8.7 Thou/mm3 (3.8-10.6)
[2025-03-10 11:15] LABS: Anion Gap 9 (7-16); BUN/Creatinine Ratio 14 Ratio (12-20); Blood Urea Nitrogen 11 mg/dL (9-23); Calcium 9.4 mg/dL (8.3-10.6); Carbon Dioxide 29.3 mMol/L (20.0-31.0); Chloride 103 mMol/L (98-107); Creatinine (Component) 0.8 mg/dL (0.6-1.3); Estimated Creatinine Clearance 150.3 mL/min (>60); Glucose 101 mg/dL (74-106); Osmolality,Calculated 280 (275-295); Potassium 4.1 mMol/L (3.4-5.1); Sodium 141 mMol/L (136-145); eGFR > 60 See Note
[2025-03-10 11:27] LABS: INR 1.0 (0.9-1.3); Partial Thromboplastin Time 30.3 Seconds (22.0-36.0); Prothrombin Time 10.9 Seconds (9.0-12.2)
[2025-03-13] VITALS (18 sets, daily range): BP systolic 101–142; BP diastolic 50–99; PULSE 80–98; RESP 14–20; TEMP 36.2–36.6; O2SAT 94–99; BMI 39.6
[2025-03-13] MEDS: ACETAMINOPHEN 325 MG TABLET 650 MG PO (10:16)
[2025-03-13] MEDS: PREGABALIN 75 MG CAPSULE PO (10:17)
[2025-03-13] MEDS: MELOXICAM 7.5 MG TABLET PO (10:17)
--- NOTE | 2025-03-13 12:22 | PD.SUROPNT ---
Date of Procedure 03/13/25 Pre Op Diagnosis left knee osteoarthritis Post Op Diagnosis Left knee osteoarthritis Procedure Left total knee replacement Carl Findings Full-thickness cartilage loss and osteophytes. There was a foreign body or fragment upon incision that was removed that was also detected on the preop x-ray Procedure Description Indication: The patient has a long history of left knee pain. X-rays show degenerative arthritis involving the knee. Over the past several years the patient has had increasing pain, progressive limitation in function. He has failed conservative measures including activity modification, physical therapy, injections, anti-inflammatories, and assistive devices. After a lengthy discussion of the risks and benefits, the patient presents now for total knee replacement. The nature and purpose of the total knee replacement, alternative method(s) of treatment, the material risks involved, and the possibility of complications were fully explained to the patient. The patient was told the most common risks and complications associated with a total knee replacement include, but are not limited to blood clots in the leg, fatal pulmonary embolism, dislocation of the prosthesis, intraoperative and postoperative fractures of the femur or tibia, infection, failure of the prosthesis or grafting materials, complications from anesthesia, reactions to blood transfusions, postoperative leg length inequality, instability of the knee replacement, nerve damage or injury, vascular injury, delayed wound healing, infections, other injury or even . In addition, there are risks associated with anesthesia given during this operation, temporary or permanent numbness on the skin lateral to the incision can be a complication unique to total knee surgery, and kneeling can be painful after knee replacement surgery. Also, the patient was told that after undergoing a total knee replacement there may still be pain or disability. We discussed with the patient that we will be using a robot-assisted technology. We discussed that there is a possibility of converting to manual instrumentation. The patient was informed that the success of this operation in part depends upon the mechanical devices which are going to be implanted and that these devices can fail or malfunction, and may need to be repaired or replaced and there are no guarantees as to the longevity of this device or its part and that it or its parts could fail prematurely. Finally, the patient was asked to follow completely and fully with all advice and recommended treatments, and that recovery and ultimate outcome are affected by their compliance with recommended treatment. Surgical technique: Patient was marked and consented in the pre-operative area. The patient was brought to the operating room and placed on the operating table in a supine position. Prior to positioning, a timeout procedure was performed between the surgeon, the anesthesiologist, and the nursing staff where the patient and the operative side were identified and confirmed. After adequate general anesthetic was obtained, the left lower extremity was prepped and draped in the usual sterile fashion. A weight based dose of Cefazolin were administered within 1 hour prior to incision. The robot was preregistered and calibrated before the incision. The extremity was exsanguinated with an esmarch badge and tourniquet inflated to 250mmHg. A midline incision was made. A median parapatellar arthrotomy was made. The patella was subluxed laterally. A medial release was performed to expose the medial tibia. His femoral and tibial pins were placed through an intra incisional manner for both cases. Every effort was made to ensure that the distalmost aspect of the pin was hung in the second cortex. The arrays were then tightened several times to ensure that it was fixed for the remainder of the case. Both femoral and tibial checkpoints were then placed. We then went through the registration process of the bone. We then assessed the knee deformity and attempted to correct it. We also used the robot to aid in judging laxity in both extension and flexion. Final based on laxity and alignment we changed the preoperative assessment to obtain proper proper implant positioning and to correct deformity. Attention was then placed to the tibia. We made a tibial cut using the robot ensuring that both the MCL and the patella tendon were protected with retractors. We then went to the femur and made the posterior cut followed by the anterior cut and the anterior chamfer. The bone was then removed and we made a distal femur cut and a posterior chamfer cut. We verified all cuts. A trial reduction was performed with a size 5 femoral component and a size 5 keeled tibial component. T The patella tracked centrally, and no lateral retinacular release was necessary. The trial implants were removed. The arrays, pins, and checkpoints were all removed. We performed a verification that all pins were removed. The cut bone surfaces were lavaged. A size 5 left femoral component, a size 5 keeled tibial component were impacted into position. The knee was felt to be well balanced in the sagittal and coronal plane. The final 5x10 mm cruciate-substituting articular insert was impacted into the tibial tray. The knee was brought out to full extension, flexed up to 120 degrees. It was stable to varus and valgus stress and appropriately balanced in flexion and extension. The wounds were copiously irrigated following deflation of tourniquet. The medial retinaculum was reapproximated with #1 vicryl and quill. The subcutaneous tissues were closed with 0 and 2-0 interrupted Vicryl. The skin was closed with 3-0 Monofilament V loc suture. A sterile dressing was applied. The patient was transferred to a bed and brought to recovery in stable condition. The patient tolerated the procedure well. There were no intraoperative complications. Sponge and needle counts were correct times 2. As the attending surgeon, I attest I was present and performed the entire operation. Grafts/Implants Size 5 CR Femur Size 5 Tibia 10mm poly CS Implants Implants comments: jag Pathology / specimen None Pathology comment: none Estimated Blood Loss 150 Condition Stable Disposition same day Surgeon Manas Cisneros MD Surgical Staff Operation Date: 03/13/25 15:15 Case Staff Anesthesiologist: Pro Nelson RNthird rail installer: Sonja Diaz
--- NOTE | 2025-03-13 12:26 | XR_ITS ---
EXAMINATION: Left knee 2 views TECHNIQUE: AP lateral left knee 2 views Date and time: March 13, 2025, 1321 hours INDICATIONS: Postop knee replacement. FINDINGS: Total left knee arthroplasty. Satisfactory alignment No fracture IMPRESSION: Total left knee arthroplasty with satisfactory alignment
--- NOTE | 2025-03-13 12:38 | SUR.PHASEI ---
pt received from OR in recovery bay 5. pt awake and alert, breathing unlabored on room air. v/s stable. pt dressing to left lower extremity cdi. report received from Domonique Mancilla and Dr. Nelson.
--- NOTE | 2025-03-13 12:52 | SUR.PHASEI ---
pt able to tolerate oral fluids without difficulty swallowing or nausea/vomiting.
[2025-03-13] MEDS: fentaNYL CIT INJ 50 mCg/ML AMP 2ML IVP (17:18)
--- NOTE | 2025-03-13 17:48 | SUR.PHASEII ---
pt awake and alert, breathing unlabored on room air. v/s stable. pt dressing to left lower extremity cdi. pt cleared by physical therapist Christopher. pt able to ambulate in pacu hallway using walker. d/c instructions given in room with Lenora, all questions answered. pt d/c via wheelchair with all belongings.
--- NOTE | 2025-03-19 08:54 | PD.ANESPROG ---
Documentation for date of: 03/19/25 POST ANESTHESIA NOTE: Patient had spinal anesthesia and L adductor block for L TKA on 03/13/25. I just called his number for follow up but no answer. Pro Nelson MD Anesthesia Progress Note Progress Note Most recent Vital Signs: Last Vital Signs Temp 97.1 F 03/13/25 17:30 Pulse 95 03/13/25 17:30 Resp 14 03/13/25 17:30 BP 142/86 H 03/13/25 17:30 Pulse Ox 97 03/13/25 17:30
== END 2025-03-13 17:48 | disposition home or self-care (01) ==
PROVIDERS: Referring Provider Orthopaedic Surgery Adult Reconstructive Orthopaedic Surgery; Visit Provider Orthopaedic Surgery Adult Reconstructive Orthopaedic Surgery
PROC: (CPT 20985; principal; 2025-03-13 15:15)
DX: M17.12 Unilateral primary osteoarthritis, left knee (principal); M25.762 Osteophyte, left knee
CPT/HCPCS: 20985; 27447; 36415; 73560; 80048; 85025; 85610; 85730; 97162; A4217; A4649; C1713; C1776; J0690; J1100; J1200; J2250; J2371; J2704; J2765; J2795; J3010; J3490; A4648; A9270

== ENCOUNTER 2025-03-30 13:08 | Outpatient (AMB) | payer MEDICAID, SELFPAY ==
--- NOTE | 2025-03-30 13:16 | ORTHONT_ITS ---
Vital signs 03/30/25 13:17 Height 1.75 m Height Method Measured Weight 117.282 kg Weight Measurement Method Standing Scale BMI 38.2 BP 135/83 H Blood Pressure Source Automatic Cuff Blood Pressure Location Left Upper Arm Position Sitting Respiration 18 Pulse 103 H Pulse Source Monitor Temp 97.4 F Temp Source Temporal Artery Scan Pulse Oximetry (%) 96 Oxygen Delivery Method Room Air Med/Allergies Allergies & Medications Allergies No Known Drug Allergies Allergy (Verified 03/30/25 13:18) Medication Reconciliation aspirin 81 mg tablet,delayed release 81 mg PO BID #60 tabs 03/13/25 [Rx Confirmed 03/30/25] doxycycline hyclate 100 mg tablet 100 mg PO BID #14 tabs 03/13/25 [Rx Confirmed 03/30/25] gabapentin 300 mg capsule 300 mg PO .qhs #30 caps 03/13/25 [Rx Confirmed 03/30/25] sennosides 8.6 mg-docusate sodium 50 mg tablet (Senna-S) 1 tab-cap PO QDAY #30 tabs 03/13/25 [Rx Confirmed 03/30/25] acetaminophen 500 mg tablet (Acetaminophen Extra Strength) 1,000 mg (2 x 500 mg) PO Q6H PRN pain #90 tabs 03/30/25 [Rx] oxycodone 5 mg tablet 5 mg PO Q6H PRN pain #28 tabs 03/30/25 [Rx] Exam Exam Patient is in no acute distress and is cooperative with the examination today. Patient has a normal mood and affect. Breathing is nonlabored. In no respiratory distress. Bilateral extremities were evaluated and demonstrates sensation intact to light touch. Palpable pedal pulses are present. No significant edema is present. Left knee incision is clean dry intact Assessment and Plan Problem List (1) History of total left knee replacement: Status: Acute Plan: Patient is a 44-year-old male status post left total knee replacement. He is doing well postoperatively. Will start him in physical therapy. Will see him in 4 weeks for routine follow-up. Office Procedures GNS Level of Care Nursing/Assessment Patient Status: Established Patient Nursing Assessment/Reassesment: Medication Reconciliation, Update PMH in EMR and Vital Signs Coordination of Care: Complex Care and Chronic Disease 1-5, Education Complex Pt/Fam, Consent,records obtained, informed consent, Results/Orders obtained and Staff clarify orders Established Patient Charge Established Patient Point Assignment: 95 Established Patient Point Charge: EP Level 3 (80-115) MA Intake Visit Data Collection New Patient or Established: Established Patient (seen at [facility] within 3 years) Reason for Visit:: 2 WEEK POST OP LT TKA Seen by Clinical Staff ONLY (RN/MA): No Verbal consent obtained for Telemed visit?: No Weight Calculator Required: No PCP or OBGYN visit in last 3 months: Yes Hx Now: No Do You Feel Safe at Home: Yes Authorities Contacted: N/A Questionairres Past Medical History Past Medical History Have you ever been diagnosed with any of the following: Neurological Problems Seizures: No Cardiology Problems Congestive Heart Failure: No Varicose Veins: Yes Respiratory Problems Chronic Obstructive Pulmonary Disease (COPD): No Smoking: No Smoking Cessation Counseling: No Smoking Exposure: No Tobacco Use: No Genital/Urinary Problems Renal Disease: No Musculoskeletal Problems Arthritis: Yes Endocrine Problems Diabetes Mellitus Type 1: No Diabetes Mellitus Type 2: No Other Problems Hospitalization: No Shingles: No Blood Transfusions: No Blood Transfusion Reaction: No Anesthesia Reactions: No Chicken Pox: Yes Cancer: No Subjective Visit Visit for: follow up visit and knee Immunization / Flu Flu Vaccine in the Last 12 Months: No Flu Vaccine Exclusion Criteria: Refused by Patient History of Present Illness Chief complaint: 2 WEEK POST OP LT TKA Date of injury / onset of symptoms: 5 YEARS Sergio is a 44-year-old male with persistent left knee pain. He has significant yrkd-ek-ckyi arthritis in the left knee. he is doing well status post left total knee replacement 2 weeks ago. Will see him back in 4 weeks for routine follow-up Personal History BMI Counceling provided: Yes Pain Pain level (0-10): 6 Pain duration: ALL DAY Pain location: inside (medial), outside (lateral), anterior and posterior Pain quality: sharp Pain timing: increases with activity Associated signs & symptoms: none Ambulatory data Ambulatory device: none Treatments Number of previous injections: 2 Improvement with previous injections: No Review of Systems Review of Systems: All systems negative unless otherwise noted in HPI.
[2025-03-30 13:17] VITALS: BP 135/83; PULSE 103; RESP 18; TEMP 36.3; O2SAT 96; BMI 38.2
== END 2025-03-30 13:21 | disposition home or self-care (01) ==
LOC: HODSRG 13:08
PROVIDERS: Supervising Provider Orthopaedic Surgery Adult Reconstructive Orthopaedic Surgery; Visit Provider Orthopaedic Surgery Adult Reconstructive Orthopaedic Surgery
DX: Z47.1 Aftercare following joint replacement surgery (principal); Z96.652 Presence of left artificial knee joint; M25.562 Pain in left knee
CPT/HCPCS: 99213; G0463